=== PATIENT | female | born 1945 | race Caucasian/White ===

== ENCOUNTER 2017-02-23 09:44 | Day surgery (SDC) | payer MEDICARE ==
[2017-02-17 10:05] VITALS: BMI 32.3
[~2017-02-23 09:44] MED LIST: LACTATED RINGERS 1,000 ML IV SCH; LIDOCAINE 1% 20 ML VIAL (10MG/ML) FOR IV START INTRADERMA PRN
[2017-02-23 10:49] VITALS: RESP 16; TEMP 97.8
[2017-02-23] MEDS: CYCLOPENTOLATE 1% OPHTH SOLN 2 ML BTL OP ONE ×3 (10:53→11:10)
[2017-02-23] MEDS: KETOROLAC 0.5% OPHTH DROPS 3 ML BTL OP ONE ×3 (10:55→11:12)
[2017-02-23] MEDS: PHENYLEPHRINE 10% OPHTH DROPS 5 ML BTL OP ONE ×3 (10:57→11:14)
[2017-02-23] MEDS ORDERED: TETRACAINE 0.5% OPHTH (PF) DROPS 4 ML BTL LEFT EYE ONE (11:59)
[2017-02-23] MEDS ORDERED: BALANCED SALT IRRIG SOLN COMB2 15 ML IRRIG.SOLN INTRAOCULA ONE ×2 (11:59→12:11)
[2017-02-23] MEDS ORDERED: HYALURONATE SODIUM INTRAOCULAR 1 EACH SYRINGE (10MG/ML) INTRAOCULA ONE ×2 (11:59→12:11)
[2017-02-23] MEDS: BUPIVACAINE (PF) 0.75% 5 ML, LIDOCAINE 4% (PF) 5 ML, HYALURONIDASE, HUMAN RECOMB 150 UNIT MISCELLANE ONE ×12 (12:00→12:11)
[2017-02-23] MEDS ORDERED: TIMOLOL 0.5% OPHTH SOLN (PF) 0.2 ML DROPERETTE LEFT EYE ONE ×2 (12:00→12:11)
[2017-02-23] MEDS: GENTAMICIN/PREDNISOL AC OPHTH OINT 3.5GM OPHTHALMIC ONE ×2 (12:00→12:11)
[2017-02-23] MEDS ORDERED: PROPOFOL 10 MG/ML 20 ML VIAL IV ONE (12:01)
[2017-02-23] MEDS ORDERED: EPINEPHrine (PF) 0.5 ML in BALANCED SALT IRRIG SOLN COMB2 500 ML IRRIGATION ONE (12:04)
--- NOTE | 2017-02-23 12:22 | P.OP ---
Date of Procedure: 02/23/17 Preoperative Diagnosis: Postoperative Diagnosis: Procedure(s) Performed: PREOPERATIVE DIAGNOSIS: Cataract, left eye. POSTOPERATIVE DIAGNOSIS: Cataract, left eye. OPERATION: Phacoemulsification cataract, left eye. DESCRIPTION OF PROCEDURE: The patient was taken to the preoperative holding area. Intravenous Propofol was given so as to bring about adequate sedation. The following mixture was given for local anesthesia: 5 mL of 2% lidocaine, 5 mL of 0.75% Marcaine, and 1 mL of Wydase. Approximately 4 mL was injected in the retrobulbar space of the surgical eye. Additional 1 mL was then directed to the temporal area of the surgical eye. This was performed to allow adequate neurological block of the facial muscles. The patient was revived and then taken into the operative room. The patient was prepped and draped in the usual sterile manner for the operative eye. A lid speculum was put into position. The conjunctiva was resected back from the limbus in the 12 o'clock position. Bleeding was controlled with electrocautery. A #69 blade was then used and a half-thickness scleral incision approximately 1-mm posterior to the limbus was made on bare sclera. This was shelved in the clear cornea using a crescent knife. Next a 15-degree blade was used to make a stab incision at the 3 o' clock position at the corneolimbal interface. Keratome blade was then used and the superior wound was extended into the anterior chamber. Viscoelastic was injected into the anterior chamber and to maintain its form. Next, a cystotome was used and a continuous anterior capsulotomy was made without difficulty. Hydrodissection using a blunt cannula and BSS was performed. Phaco probe was then employed and a groove extending from 12 to 6 o'clock in the lens was created. A Pete wand was used through the stab incision so as to perform a divide and conquer technique. Next an irrigation aspiration probe was utilized and any residual cortex was removed from the eye. Again, viscoelastic was injected into the anterior chamber. An Vahid posterior chamber lens implant was placed in the cartridge and injected into the anterior chamber without difficulty. The Avectraey hook was utilized to spin the lens into position and this was again performed without any difficulty. The irrigation and aspiration probe was again employed and any residual viscoelastic was removed from the eye. Then BSS was injected into the limbal stab incision and the anterior chamber re-inflated. The conjunctiva was reapproximated using electrocautery. One drop of 0.25% Timoptic was placed over the corneal along with TobraDex ophthalmic ointment. Two sterile patches and a Coleman eye shield were taped into position. The patient was transported to the recovery room in stable condition. Implants: Pathology: none sent Condition: stable Disposition: same day Indications for Procedure: Operative Findings: Description of Procedure:
[2017-02-23 12:46] VITALS: BP 147/65; PULSE 67
[2017-02-23] MEDS ORDERED: TIMOLOL 0.5% OPHTH SOLN (PF) 0.2 ML DROPERETTE OP ONE (23:00)
== END 2017-02-23 13:26 | disposition home or self-care (01) ==
LOC: OR 09:44
PROVIDERS: ATTEND Ophthalmology
DX: H26.9 Unspecified cataract (principal); M19.90 Unspecified osteoarthritis, unspecified site; Z79.899 Other long term (current) drug therapy
CPT/HCPCS: 66984; V2632; J2001; J3470; J0171; J2704

== ENCOUNTER 2017-04-20 12:06 | Day surgery (SDC) | payer MEDICARE, OTHER ==
[2017-04-19 10:01] VITALS: BMI 32.3
[2017-04-20] MEDS: CYCLOPENTOLATE 1% OPHTH SOLN 2 ML BTL OP ONE ×3 (12:36→12:54)
[2017-04-20] MEDS: KETOROLAC 0.5% OPHTH DROPS 5 ML BTL OP ONE ×3 (12:39→12:57)
[2017-04-20 12:41] VITALS: RESP 18; TEMP 97.9
[2017-04-20] MEDS: PHENYLEPHRINE 10% OPHTH DROPS 5 ML BTL OP ONE ×3 (12:42→13:00)
[2017-04-20] MEDS ORDERED: LIDOCAINE 1% 20 ML VIAL (10MG/ML) FOR IV START INTRADERMA ONE (13:02)
[2017-04-20] MEDS ORDERED: LACTATED RINGERS 1,000 ML IV ONE (13:06)
[2017-04-20] MEDS ORDERED: PROPOFOL 10 MG/ML 20 ML VIAL IV ONE (13:56)
[2017-04-20] MEDS ORDERED: EPINEPHrine (PF) 0.5 ML in BALANCED SALT IRRIG SOLN COMB2 500 ML IRRIGATION ONE (14:00)
[2017-04-20] MEDS ORDERED: HYALURONATE SODIUM INTRAOCULAR 1 EACH SYRINGE (10MG/ML) INTRAOCULA ONE (14:05)
[2017-04-20] MEDS ORDERED: BALANCED SALT IRRIG SOLN COMB2 15 ML IRRIG.SOLN INTRAOCULA ONE (14:05)
[2017-04-20] MEDS ORDERED: TIMOLOL 0.5% OPHTH SOLN (PF) 0.2 ML DROPERETTE RIGHT EYE ONE (14:06)
--- NOTE | 2017-04-20 14:20 | P.OP ---
Date of Procedure: 04/20/17 Procedure(s) Performed: PREOPERATIVE DIAGNOSIS: Cataract, right eye. POSTOPERATIVE DIAGNOSIS: Cataract, right eye. OPERATION: Phacoemulsification cataract, right eye. DESCRIPTION OF PROCEDURE: The patient was taken to the preoperative holding area. Intravenous Propofol was given so as to bring about adequate sedation. The following mixture was given for local anesthesia: 5 mL of 2% lidocaine, 5 mL of 0.75% Marcaine, and 1 mL of Wydase. Approximately 4 mL was injected in the retrobulbar space of the surgical eye. Additional 1 mL was then directed to the temporal area of the surgical eye. This was performed to allow adequate neurological block of the facial muscles. The patient was revived and then taken into the operative room. The patient was prepped and draped in the usual sterile manner for the operative eye. A lid speculum was put into position. The conjunctiva was resected back from the limbus in the 12 o'clock position. Bleeding was controlled with electrocautery. A #69 blade was then used and a half-thickness scleral incision approximately 1-mm posterior to the limbus was made on bare sclera. This was shelved in the clear cornea using a crescent knife. The steep axis of astigmatism was marked using a pre-inked corneal device. Next a 15-degree blade was used to make a stab incision at the 3 o' clock position at the corneolimbal interface. Keratome blade was then used and the superior wound was extended into the anterior chamber. Viscoelastic was injected into the anterior chamber and to maintain its form. Next, a cystotome was used and a continuous anterior capsulotomy was made without difficulty. Hydrodissection using a blunt cannula and BSS was performed. Phaco probe was then employed and a groove extending from 12 to 6 o'clock in the lens was created. A Pete wand was used through the stab incision so as to perform a divide and conquer technique. Next an irrigation aspiration probe was utilized and any residual cortex was removed from the eye. Again, viscoelastic was injected into the anterior chamber. An Vahid toric posterior chamber lens implant was placed in the cartridge and injected into the anterior chamber without difficulty. The Sinskey hook was utilized to spin the lens into position and this was again performed without any difficulty. The irrigation and aspiration probe was again employed and any residual viscoelastic was removed from the eye. Then BSS was injected into the limbal stab incision and the anterior chamber re-inflated. The conjunctiva was reapproximated using electrocautery. One drop of 0.25% Timoptic was placed over the corneal along with TobraDex ophthalmic ointment. Two sterile patches and a Coleman eye shield were taped into position. The patient was transported to the recovery room in stable condition. Pathology: none sent Condition: stable Disposition: same day
[2017-04-20 14:45] VITALS: BP 152/77; PULSE 66
[2017-04-20] MEDS ORDERED: BUPIVACAINE (PF) 0.75% 5 ML, LIDOCAINE 4% (PF) 5 ML, HYALURONIDASE, HUMAN RECOMB 150 UNIT MISCELLANE ONE ×3 (23:00)
[2017-04-20] MEDS ORDERED: TIMOLOL 0.5% OPHTH SOLN (PF) 0.2 ML DROPERETTE OP ONE (23:00)
[2017-04-20] MEDS ORDERED: GENTAMICIN/PREDNISOL AC OPHTH OINT 3.5GM OPHTHALMIC ONE (23:00)
== END 2017-04-20 15:05 | disposition home or self-care (01) ==
LOC: OR 12:06
PROVIDERS: ATTEND Ophthalmology
DX: H26.9 Unspecified cataract (principal); Z79.899 Other long term (current) drug therapy
CPT/HCPCS: 66984; V2787; C1780; J2001; J3470; J0171; J2704

== ENCOUNTER 2017-10-27 13:07 | Emergency (ER) | payer MEDICARE ==
[2017-10-27] MEDS ORDERED: ASPIRIN 81 MG PO STA (13:32)
[2017-10-27] MEDS ORDERED: RX INFO: IV CONTRAST WAS GIVEN 1 EACH MISC MISCELLANE PRN (13:33)
--- NOTE | 2017-10-27 13:36 | ED ---
Chest Pain HPI - General Chief Complaint: Chest Pain Stated Complaint: Chest pain Time Seen by Provider: 10/27/17 13:32 Source: patient Mode of arrival: wheelchair Limitations: no limitations - History of Present Illness Initial Comments: Patient complains of chest pain. She has been having off-and-on chest pain for about a year. She has been admitted to the hospital for this. She has had an echocardiogram, stress test, CT for pulmonary embolism, all within the last couple months. All of her testing has been negative. She states that nothing makes the chest pain better or worse. There is nothing specific that brings it on. Sometimes it does come on with exertion, but not always. She has no shortness of breath, lightheadedness or dizziness or nausea or vomiting or diaphoresis. She has no pain or swelling the legs or calf pain. She has no palpitations. She has no headache. She states that when she gets the chest pain she does experience sweating, but is currently not having any chest pain or feels diaphoretic. - Related Data Home Medications Medication Instructions Recorded Confirmed Aspirin 325 mg PO Q4H PRN 10/27/17 10/27/17 Allergies Allergy/AdvReac Type Severity Reaction Status Date / Time No Known Allergies Allergy Verified 10/27/17 14:01 Review of Systems ROS Statement: Those systems with pertinent positive or pertinent negative responses have been documented in the HPI. ROS Other: All systems not noted in ROS Statement are negative. EKG Findings - EKG Comments: EKG Findings:: Twelve-lead EKG shows ventricular rate 73 bpm, normal AR interval Fernando complex is, no ST elevation or depression, interpreted by me as normal sinus rhythm. Past Medical History Past Medical History: Eye Disorder Additional Past Medical History / Comment(s): RT CATARACT History of Any Multi-Drug Resistant Organisms: None Reported Past Surgical History: Cholecystectomy, Hernia Repair, Orthopedic Surgery, Tonsillectomy Additional Past Surgical History / Comment(s): LEFT CATARACT,LASER VARICOSE VEIN RT LEG,ORIF LT ANKLE,COLONOSCOPY Past Anesthesia/Blood Transfusion Reactions: No Reported Reaction Past Psychological History: No Psychological Hx Reported Smoking Status: Never smoker Past Alcohol Use History: None Reported Past Drug Use History: None Reported - Past Family History Mother Family Medical History: No Reported History General Exam Limitations: no limitations General appearance: alert, in no apparent distress Head exam: Present: atraumatic, normocephalic, normal inspection Eye exam: Present: normal appearance, PERRL, EOMI. Absent: scleral icterus, conjunctival injection, periorbital swelling ENT exam: Present: normal exam, mucous membranes moist Neck exam: Present: normal inspection. Absent: tenderness, meningismus, lymphadenopathy Respiratory exam: Present: normal lung sounds bilaterally. Absent: respiratory distress, wheezes, rales, rhonchi, stridor Cardiovascular Exam: Present: regular rate, normal rhythm, normal heart sounds. Absent: systolic murmur, diastolic murmur, rubs, gallop, clicks GI/Abdominal exam: Present: soft, normal bowel sounds. Absent: distended, tenderness, guarding, rebound, rigid Extremities exam: Present: normal inspection, full ROM, normal capillary refill. Absent: tenderness, pedal edema, joint swelling, calf tenderness Back exam: Present: normal inspection Neurological exam: Present: alert, oriented X3, CN II-XII intact Psychiatric exam: Present: normal affect, normal mood Skin exam: Present: warm, dry, intact, normal color. Absent: rash Course Vital Signs 10/27/17 13:15 Temperature 97.9 F Pulse Rate 86 Respiratory 20 Rate Blood Pressure 158/86 O2 Sat by Pulse 99 Oximetry Chest Pain MDM - Core Measures AMI Core Measures Followed: Yes - MDM Patient's entire workup is negative. All her imaging is negative. She is symptom free on reevaluation. She has had a very extensive workup within the past couple months. There is no indication for admission at this time. She has no evidence of an acute emergency condition currently. She is stable for discharge and outpatient follow-up. Disposition Clinical Impression: Chest pain Disposition: HOME SELF-CARE Condition: Good Instructions: Chest Pain (ED) Is patient prescribed a controlled substance at d/c from ED?: No Referrals: Kishore Carr DO [Primary Care Provider] - 1-2 days Mimi Ward MD [STAFF PHYSICIAN] - 1-2 days
[2017-10-27 13:46] LABS: Basophils % (A) 0 %; Eosinophils # (A) 0.3 k/uL (0-0.7); Eosinophils % (A) 3 %; HCT 40.7 % (34.0-46.0); HGB 13.2 gm/dL (11.4-16.0); Lymphocytes # (A) 1.9 k/uL (1.0-4.8); Lymphocytes % (A) 17 %; MCH 27.2 pg (25.0-35.0); MCHC 32.5 g/dL (31.0-37.0); MCV 83.6 fL (80.0-100.0); Mean Platelet Volume 7.6; Monocytes # (A) 0.6 k/uL (0-1.0); Monocytes % (A) 5 %; Neutrophils # (A) 7.8 k/uL (1.3-7.7); Neutrophils % (A) 73 %; Platelet Count 240 k/uL (150-450); RBC 4.88 m/uL (3.80-5.40); RDW 13.7 % (11.5-15.5); WBC 10.7 k/uL (3.8-10.6)
[2017-10-27 13:53] LABS: Albumin 4.1 g/dL (3.5-5.0); Calcium 9.6 mg/dL (8.4-10.2); Magnesium 1.9 mg/dL (1.6-2.3); Potassium 4.3 mmol/L (3.5-5.1); Total Bilirubin 0.5 mg/dL (0.2-1.3); Total Protein 6.9 g/dL (6.3-8.2)
--- NOTE | 2017-10-27 13:57 | XR ---
EXAMINATION TYPE: XR chest 2V DATE OF EXAM: 10/27/2017 COMPARISON: 01/14/2012 TECHNIQUE: PA and lateral views submitted. HISTORY: Chest pain FINDINGS: The lungs are clear and there is no pneumothorax, pleural effusion, or focal pneumonia. Calcified g ranuloma right lung. Hypertrophic and degenerative change of the spine. No overt failure. IMPRESSION: 1. No acute process.
[2017-10-27 13:58] LABS: Partial Thromboplastin Time 23.2 sec (22.0-30.0)
[2017-10-27 15:37] LABS: Appearance,Urine Clear (Clear); Bacteria,Urine Many /hpf; Bilirubin,Urine Negative (Negative); Blood,Urine Negative (Negative); Color,Urine Light Yellow; Glucose,Urine (UA) Negative (Negative); Ketones,Urine Negative (Negative); Leukocyte Esterase,Urine Moderate (Negative); Mucus,Urine Rare /hpf; Nitrite,Urine Negative (Negative); Protein,Urine Negative (Negative); RBC,Urine 1 /hpf (0-5); Specific Gravity,Urine 1.007 (1.001-1.035); Squamous Epithelial Cell,Urine 1 /hpf (0-4); Urobilinogen,Urine <2.0 mg/dL (<2.0); WBC,Urine 14 /hpf (0-5)
--- NOTE | 2017-10-27 15:37 | CT ---
EXAMINATION TYPE: CT abdomen pelvis w con DATE OF EXAM: 10/27/2017 HISTORY: Chest pain, SOB and RUQ pain. CT DLP: 1704mGycm Automated Exposure Control for Dose Reduction was Utilized. CONTRAST: CT scan of the abdomen and pelvis is performed with IV Contrast, patient injected with 100ml mL of Is ovue M300. COMPARISON: None. FINDINGS: LUNG BASES: There is a calcified granuloma at the right lung base. Prominent subpleural fat is seen i n the left with no pleural effusion. There is left hemidiaphragm elevation noted. LIVER/GB: Liver is grossly unremarkable and homogeneous in enhancement. Gallbladder surgically absent . PANCREAS: There is diffuse mild to moderate pancreatic parenchymal atrophy. No ductal dilatation. SPLEEN: Scattered calcified granulomas are benign in seen within the splenic parenchyma. ADRENALS: No nodularity or thickening. KIDNEYS: Tiny 3 mm anterior right upper pole and posterior right upper pole renal lesions are seen th at are too small to accurately characterize. No hydronephrosis or perinephric fluid collection. BOWEL: Numerous colonic diverticula are present without pericolonic fat stranding. UTERUS/ADNEXA: No gross abnormality seen. Pelvic floor relaxation is noted with possible cystocele. LYMPH NODES: No greater than 1cm abdominal or pelvic lymph nodes are appreciated. OSSEOUS STRUCTURES: Moderate multilevel degenerative changes of visualized spine are seen. IMPRESSION: 1. No acute finding is seen to account for patient's clinical symptoms. 2. Colonic diverticulosis without evidence of diverticulitis. 3. Pelvic floor relaxation with possible cystocele.
[2017-10-27 16:06] VITALS: BP 134/80; PULSE 68; RESP 18; TEMP 97.3
== END 2017-10-27 15:55 | disposition home or self-care (01) ==
LOC: EC 13:07
DX: R07.9 Chest pain, unspecified (principal)
CPT/HCPCS: 36415; 93005; 83880; 80053; 83690; 83735; 84484; 85025; 85610; 85730; 81001; 71046; 74177; 99285; Q9967

== ENCOUNTER → 2018-05-17 | Outpatient (CLI) | payer MEDICARE ==
[2018-05-17 17:39] LABS: LDL Cholesterol,Calculated 80.2 mg/dL (0.0-131.0); VLDL Calculation 27.8 mg/dL (5.00-40.00)
== END ==
LOC: LABWHC1 09:09
PROVIDERS: ATTEND Internal Medicine Cardiovascular Disease
DX: I25.111 Atherosclerotic heart disease of native coronary artery with angina pectoris with documented spasm (principal)
CPT/HCPCS: 36415; 80061; 84460

== ENCOUNTER → 2018-11-10 | Outpatient (CLI) | payer MEDICARE ==
[2018-11-10 18:45] LABS: LDL Cholesterol,Calculated 87.4 mg/dL (0.0-131.0); VLDL Calculation 28.6 mg/dL (5.00-40.00)
== END | disposition home or self-care (01) ==
LOC: LABWHC1 09:05
PROVIDERS: ATTEND Internal Medicine Cardiovascular Disease
DX: E78.6 Lipoprotein deficiency (principal); I20.9 Angina pectoris, unspecified; I25.111 Atherosclerotic heart disease of native coronary artery with angina pectoris with documented spasm
CPT/HCPCS: 36415; 80061

== ENCOUNTER → 2019-08-25 | Outpatient (CLI) | payer MEDICARE ==
--- NOTE | 2019-08-25 15:49 | CT ---
EXAMINATION TYPE: CT angio chest DATE OF EXAM: 08/25/2019 COMPARISON: None HISTORY: Shortness of breath CONTRAST: CT chest with contrast and 3D reconstruction with MIP imaging is performed with IV Contrast, patient injected with 100 mL of Isovue 300. Contrast-enhanced CT of the chest was performed through the course of the pulmonary arteries with dulce g and mediastinal window settings submitted. 3D reconstruction with MIP imaging was also performed. PULMONARY ARTERIES: The pulmonary arteries and their major tributaries are patent. I do not see zachary dence for sizable filling defect to suggest pulmonary embolic process. LUNGS: The lungs are clear and free of infiltrate. No evidence for atelectasis. No pulmonary nodule or mass is detected. No pleural effusion. Scattered calcified granulomas identified. MEDIASTINUM: Thoracic aorta is of normal caliber,however, evaluation is limited given timing of the contrast bolus. If there is concern for thoracic aortic pathology consider WANDA. Correlate clinicall y . The heart is not enlarged. No evidence for mediastinal mass. No mediastinal lymph nodes greater than 1cm. HILAR STRUCTURES: No evidence for mass. No hilar lymph nodes greater than 1 cm. UPPER ABDOMEN: No significant abnormality is seen. IMPRESSION: 1. No evidence for Pulmonary embolism at this time.
== END | disposition home or self-care (01) ==
LOC: RADCTMAIN 14:10
PROVIDERS: ATTEND Family Medicine
DX: R06.02 Shortness of breath (principal)
CPT/HCPCS: 82565; 84520; 71275; 36415; Q9967

== ENCOUNTER → 2021-05-24 | Outpatient (CLI) | payer MEDICARE ==
[2021-05-24 12:35] LABS: Basophils # (A) 0.1 k/uL (0-0.2); Basophils % (A) 1 %; Eosinophils # (A) 0.7 k/uL (0-0.7); Eosinophils % (A) 5 %; HCT 39.9 % (34.0-46.0); Lymphocytes # (A) 1.2 k/uL (1.0-4.8); Lymphocytes % (A) 10 %; MCH 29.2 pg (25.0-35.0); MCHC 32.7 g/dL (31.0-37.0); MCV 89.5 fL (80.0-100.0); Mean Platelet Volume 8.3; Monocytes # (A) 0.8 k/uL (0-1.0); Monocytes % (A) 6 %; Neutrophils # (A) 9.5 k/uL (1.3-7.7); Neutrophils % (A) 77 %; Platelet Count 252 k/uL (150-450); RBC 4.45 m/uL (3.80-5.40); RDW 14.1 % (11.5-15.5); WBC 12.3 k/uL (3.8-10.6)
[2021-05-24 12:47] LABS: Partial Thromboplastin Time 23.4 sec (22.0-30.0); Prothrombin Time 10.4 sec (9.0-12.0)
[2021-05-24 12:52] LABS: Calcium 9.4 mg/dL (8.4-10.2)
[2021-05-24 13:40] LABS: Appearance,Urine Cloudy (Clear); Bilirubin,Urine Negative (Negative); Blood,Urine Negative (Negative); Color,Urine Yellow; Glucose,Urine (UA) Negative (Negative); Hyaline Casts,Urine 4 /lpf (0-2); Ketones,Urine Negative (Negative); Leukocyte Esterase,Urine Moderate (Negative); Mucus,Urine Many /hpf; Nitrite,Urine Negative (Negative); Protein,Urine Trace (Negative); RBC,Urine 1 /hpf (0-5); Specific Gravity,Urine 1.032 (1.001-1.035); Squamous Epithelial Cell,Urine 5 /hpf (0-4); WBC,Urine 6 /hpf (0-5)
--- NOTE | 2021-05-24 19:21 | XR ---
EXAMINATION TYPE: XR chest 2V DATE OF EXAM: 05/24/2021 COMPARISON: 10/27/2017 HISTORY: Preop TECHNIQUE: FINDINGS: There is no heart failure nor confluent pneumonic infiltrate. Costophrenic angles are clear . There are no hilar masses. Bony thorax is intact. IMPRESSION: No active cardiopulmonary disease. Normal heart. No change.
== END | disposition home or self-care (01) ==
LOC: LABPAT 11:00
PROVIDERS: ATTEND Orthopaedic Surgery Orthopaedic Surgery of the Spine
DX: Z01.812 Encounter for preprocedural laboratory examination (principal)
CPT/HCPCS: 36415; 71046; 80048; 81001; 85025; 85610; 85730; 87070

== ENCOUNTER 2021-06-04 06:42 | Inpatient (IN) | payer MEDICARE ==
[2021-05-28 16:15] VITALS: BMI 31.3
[2021-06-04] MEDS ORDERED: ONDANSETRON 4 MG/2 ML VIAL IVP ONE (06:55)
[2021-06-04] MEDS ORDERED: MIDAZOLAM 2 MG/2 ML VIAL IV PRN (06:55)
[2021-06-04] MEDS ORDERED: DEXAMETHASONE SOD PHOSPHATE 4 MG/ML 1 ML VIAL IV ONE (06:55)
[2021-06-04] MEDS ORDERED: DEXAMETHASONE SOD PHOSPHATE 10 MG/ML 1 ML VIAL ONE (07:53)
[2021-06-04] MEDS ORDERED: NEOSTIGMINE 1 MG/ML 10 ML VIAL ONE (07:53)
[2021-06-04] MEDS ORDERED: PHENYLEPHRINE-0.9% NACL SYG 1,000 MCG/10 ML SYRINGE ONE (07:53)
[2021-06-04] MEDS ORDERED: MIDAZOLAM 2 MG/2 ML VIAL ONE (07:53)
[2021-06-04] MEDS ORDERED: ONDANSETRON 4 MG/2 ML VIAL ONE (07:53)
[2021-06-04] MEDS ORDERED: ePHEDrine 50 MG/ML 1 ML AMP ONE (07:53)
[2021-06-04] MEDS ORDERED: GLYCOPYRROLATE 0.2 MG/ML 2 ML VIAL ONE (07:53)
[2021-06-04] MEDS ORDERED: ceFAZolin 1,000 MG VIAL ONE (07:53)
[2021-06-04] MEDS ORDERED: SUCCINYLCHOLINE CHLORIDE 100 MG/5 ML SYR IV ONE (07:53)
[2021-06-04] MEDS ORDERED: LIDOCAINE 1% INJ 10MG/ML (20 ML MDV) ONE (07:53)
[2021-06-04] MEDS ORDERED: PROPOFOL 10 MG/ML 20 ML VIAL IV ONE (07:53)
[2021-06-04] MEDS ORDERED: SODIUM CHLORIDE 0.9% 100 ML BAG ONE (07:53)
[2021-06-04] MEDS ORDERED: .fentaNYL (PF) 50 MCG/ML AMP ONE (07:53)
[2021-06-04] MEDS ORDERED: ROCURONIUM 10 MG/ML (5 ML VIAL) IV ONE (07:53)
[2021-06-04] MEDS ORDERED: LACTATED RINGERS 1,000 ML IV ONE ×3 (08:00→14:14)
[2021-06-04] MEDS ORDERED: LIDOCAINE 2%-EPI 1:100,000 20 ML VIAL SQ ONE (09:00)
[2021-06-04] MEDS ORDERED: THROMBIN (BOVINE) 5,000 UNIT VIAL TOPICAL ONE (09:01)
[2021-06-04] MEDS ORDERED: GELATIN SPONGE,ABSORB (LARGE) 1 EACH SPONGE MISCELLANE ONE (09:01)
[2021-06-04] MEDS ORDERED: ceFAZolin 1,000 MG in SODIUM CHLORIDE 0.9% 1,000 ML IRRIGATION ONE (10:35)
[2021-06-04] MEDS ORDERED: SENNOSIDES-DOCUSATE SODIUM 1 EACH TAB PO PRN (13:20)
[2021-06-04] MEDS ORDERED: HYDROmorphone 0.5 MG/0.5 ML SYRINGE IVP PRN (13:20)
[2021-06-04] MEDS ORDERED: MAGNESIUM HYDROXIDE 2,400 MG/10 ML CUP PO PRN (13:20)
[2021-06-04] MEDS ORDERED: ONDANSETRON 4 MG/2 ML VIAL IVP PRN (13:20)
[2021-06-04] MEDS ORDERED: BENZOCAINE/MENTHOL LOZENG 1 EACH LOZENGE MUCOUS MEM PRN (13:20)
[2021-06-04] MEDS ORDERED: traMADol 50 MG TAB PO PRN (13:23)
[2021-06-04] MEDS: HYDROmorphone 0.5 MG/0.5 ML SYRINGE IVP PRN ×3 (13:30→14:00)
--- NOTE | 2021-06-04 13:30 | P.OP ---
Date of Procedure: 06/04/21 Preoperative Diagnosis: Spondylolisthesis L3 4, severe disc degeneration L4 5 L5-S1, disc herniation L34 and L5-S1, foraminal stenosis L3 4 L4 5 L5-S1, low back pain, lower extremity radiculopathy Postoperative Diagnosis: Same Anesthesia: GETA Pathology: none sent Condition: stable Disposition: PACU Description of Procedure: DESCRIPTION OF PROCEDURE(S): BRIEF OPERATIVE NOTE Preoperative Diagnosis: Spondylolisthesis L3 4, severe disc degeneration L4 5 L5-S1, disc herniation L34 and L5-S1, foraminal stenosis L3 4 L4 5 L5-S1, low back pain, lower extremity radiculopathy Postoperative Diagnosis: Same Procedure: Laminectomy and decompression L3 4 L4 5 L5-S1 Computer CT navigation aided Minimally invasive Posterior lateral decompression and facet fusion Minimally invasive Transforaminal lumbar interbody fusion for a 360 fusion Discectomy for decompression L3 4 and L5-S1 Placement of interbody graft L3 4 and L5-S1 Use of computer navigation for fusion L3 4 L4 5 L5-S1 Local autogenous bone grafting Aspiration of bone marrow from the vertebral body pedicle at L3 4 on the right Use of bone graft extenders Surgeon: Dr. Curiel Surgical Services Manager: Pavithra garcia Asst. who is present throughout the entire the case persistence during positioning, dissection, exposure, visualization, and all crucial elements of the case as well as closure. Anesthesia: General anesthesia Estimated blood loss: Approximately 350 mL, with approximately 130 mL given back via Cell Saver Complications: None apparent Components implanted: K2M minimally invasive [place] pedicle screw system withscrews measuring 6.5 mm in diameter to rods one [place] interbody cage with 10 mL of osteo amp bio4 bone graft substitute and 30 mL of the BX bone fibers to supplement the local autogenous bone graft and bone marrow aspirate Disposition: To recovery room in good stable condition. OPERATIVE INDICATIONS The patient has had severe issues at their lower extremity in her lower back over the past several years with significant worsening over the past several months. Over the past few months the patient had pain at their back and their lower extremities. The patient is having severe radicular symptoms at their lower extremity with weakness. Her left leg was giving her significant radicular symptoms and pain with some weakness. He is followed over and L4 description as well as an S1 distribution. She is found have large disc herniation L3 4 and L5-S1 with evidence of stenosis L4 5. She had a spondylolisthesis of L3 4 with severe near-complete disc height loss at L4 5 and L5-S1. The patient is having significant pain in their back. They are unable to obtain any comfort. We did aggressive conservative treatment with medications therapy and interventional pain management however thery were not having any relief. The patient also showed evidence of a listhesis with some dynamic instability. The patient has been through conservative treatment. We discussed various treatment options including surgery, and the patient wishes to proceed with surgery We discussed the risk, patient's alternatives and benefits of surgery including but not limited to, risk of bleeding risk of infection, risk of need for further surgery, risk of decreased, loss of motion, muscle function, malunion nonunion, hardware failure, nerve damage, paralysis, heart attack, blindness and . They understood issues with the current pandemic and the possibility of exposure. OPERATIVE SUMMARY After discussing all the risks, patient alternatives and benefits at length, the patient elected to proceed with surgical intervention, signed informed consent, and presented for their procedure. The patient was seen and examined in the preoperative holding area and the surgical site was marked. The patient was given antibiotics and brought to the operating room. The patient was sedated and intubated by anesthesia in standard fashion. The patient was positioned on to the operating room table in a prone position on the appropriate frame which was well-padded and well molded. We were careful to pad any bony prominences and pressure points. We were careful to maintain the patient's cervical spine and good neutral alignment and position throughout. The patient was prepped and draped in a normal standard fashion. An appropriate timeout and keystone protocol performed. We were able to proceed with the surgery. The local wound area was infiltrated with local anesthetic. Over the right iliac crest I was able to make small stab incisions and establish a guidepin screw fixation to the iliac crest 2. I was able place the computer referencing device over the guidepins to establish an appropriate reference point for the Ziem CT navigation. We then were able to place patient in an appropriate drape and do a navigation spin for visualization and 3-D reconstruction of the lumbar spine. I was able utilize C-arm guidance and navigation to establish appropriate position over the pedicles bilaterally at th e appropriate levels at L3 L4 L5 and S1 . With the appropriate levels confirmed was able to make small incisions over the appropriate pedicle sites bilaterally. Utilizing the computer navigation device I was able to establish bony landmarks at the right iliac crest for a bony reference point for the navigation device. I was able to establish a Jamsh[place] needle over the lateral aspect of the pedicle and advanced the trocar into the pedicle being careful not to breech superiorly inferiorly medially or laterally using computer navigation device. Position was confirmed regularly with AP and lateral images on C-arm and with the computer navigation device at the appropriate levels bilaterally. I was able to establish the trocar into the pedicle appropriately into the posterior aspect of the vertebral body bilaterally at the appropriate levels at L3 L4 L5 and S1. This was done at each of the pedicle positions and each of the vertebrae. At the superior vertebrae of L3 on the right I was able to take approximately 25 mL of bone aspiration for use later in the case to supplement the allograft and autograft bone. I was able place the guidewire into the trocar and into the vertebral body appropriately under C-arm guidance. Dissection was taken down over the wire to the appropriate starting position for the screw placed. The appropriate length screw was chosen, threaded over the g uidewire and screwed appropriately into the pedicle and vertebral body under C- arm guidance in excellent alignment and position with good bony purchase. This is done at each of the screw sites at the appropriate levels.. While using the navigation system with C-arm guidance I was able to use live imaging to show a complete bridging osteophyte at L4 5 showing good fusion across that site. There also appeared to be evidence of autofusion at the facet joints at L4 5. With this I decided not to do interbody work at L4 5 which is decompression at L4 5. I did proceed with decompression and interbody work at both L3 4 and L5-S1 With the screws intact I extended the incision to connect the screw hole sites on the most symptomatic side on the left. I dissected down to establish access over the pars and lamina to the base of the spinous process. I was able to expose the facet joint. The capsule the facet was taken down and showed some facet arthrosis at the joint. I was able to use a combination of curettes and [place] rongeurs and a high-speed drill to take down the facet joint and do a facetectomy. I was able get excellent foraminal decompression and central decompression with undermining across midline to perform a laminectomy centrally and contralaterally. As able get good central decompression. The ligamentum flavum was taken down to further decompress centrally and at bilateral neural foramen. I was able to expose the disc space and visualize the traversing nerve root. Note was made of some disc protrusion and disc herniation that was abutting the traversing nerve root at the level causing further compression of the nerve root. There is evidence of extruded disc at both L3 4 and at L5-S1. I was able to establish a annulotomy at the appropriate level protecting soft tissue and neural structures. Note was made of some disc desiccation at the disc. I was also get any extruded disc material away and perform excellent discectomy which aided in the decompression both at L3 4 and L5-S1 I performed a complete discectomy with accommodation of curettes and rasps and scrapers. I was able get good endplate preparation at the disc space. I sized for the ap propriate size interbody spacer protecting the soft tissue and neural structures. The wound was copiously irrigated and suctioned dry. There is no evidence of any dural tear or leak. I was able to pack the disc space with local autogenous bone graft as well as a small amount of bone graft which was also placed into the interbody cage itself. Protecting the soft tissue structures and neural structures I was able place the interbody cage in good alignment and good position with good fit and fill at the interbody space. Position was confirmed with C-arm guidance. Good hemostasis maintained. There is no evidence of any dural tear or leak. The wound was irrigated and suctioned dry. With the hardware intact, intraoperative C-arm imaging was again taken which showed good alignment and position of the hardware at the appropriate levels at L3 4 L4 5 and L5-S1. We were then able to measure, contour and place the rods and appropriate hardware bilaterally. I was able to place capcrews, tighten them down, and torque them with the torque screwdriver appropriately. With this intact I was able to place the local autogenous bone graft with additional bone graft enhancer as necessary into the posterior lateral gutters over the decorticated transverse processes and facet joints on the contralateral side. The remainder of the bone graft was placed over the facet joint on the contralat eral side after taking down the facet joint capsule. With the bone graft intact, a stable construct, and good decompression at the appropriate levels, we were able to proceed with closure. Good hemostasis was maintained. There is no evidence of dural tear or leak. The fascia was closed for a watertight closure. he subcuticular tissue was closed with absorbable suture. The wound was cleaned and dried and dressed with the appropriate dressing. The drapes were broken down. The patient was gently rolled back onto their hospital bed being careful to maintain their cervical spine and good neutral alignment and position. They were woken up by anesthesia, extubated, and brought to the recovery room in good stable condition. The patient will be admitted to the hospital for appropriate postoperative care, medical management and monitoring. We will continue to follow them closely about the postoperative course.
[2021-06-04] MEDS: LACTATED RINGERS 1,000 ML IV SCH (15:04)
--- NOTE | 2021-06-04 16:08 | XR ---
Fluoroscopy INDICATION: Pain FINDINGS: Fluoroscopy time: 31 seconds. Images obtained: 1. IMPRESSIONS: 1. Documentation of fluoroscopy.
[2021-06-04] MEDS: carvediloL 12.5 MG TAB PO SCH (17:00)
[2021-06-04] MEDS: SODIUM CHLORIDE 0.9% 1,000 ML IV SCH (17:00)
[2021-06-04] MEDS: HYDROcodone/APAP 5-325MG 1 EACH TAB PO PRN (21:16)
[2021-06-05] MEDS: HYDROmorphone 1 MG/ML 1 ML SYRINGE IVP PRN ×5 (00:27→23:30)
[2021-06-05] MEDS: SODIUM CHLORIDE 0.9% 1,000 ML IV SCH ×2 (03:45→14:56)
[2021-06-05 05:22] LABS: Basophils % (A) 0 %; Eosinophils % (A) 0 %; HCT 35.2 % (34.0-46.0); HGB 11.6 gm/dL (11.4-16.0); Lymphocytes # (A) 0.6 k/uL (1.0-4.8); Lymphocytes % (A) 3 %; MCH 29.4 pg (25.0-35.0); MCHC 33.1 g/dL (31.0-37.0); MCV 88.9 fL (80.0-100.0); Monocytes # (A) 0.9 k/uL (0-1.0); Monocytes % (A) 5 %; Neutrophils # (A) 15.9 k/uL (1.3-7.7); Neutrophils % (A) 91 %; Platelet Count 164 k/uL (150-450); RBC 3.96 m/uL (3.80-5.40); RDW 14.5 % (11.5-15.5); WBC 17.4 k/uL (3.8-10.6)
[2021-06-05 09:51] LABS: African American GFR (CKD) 61.2 (60.0-200.0); Anion Gap 12.7 mmol/L (10.00-18.00); BUN/Creat Ratio 17.09 Ratio (12.00-20.00); Blood Urea Nitrogen 17.6 mg/dL (9.0-27.0); Calcium 8.4 mg/dL (8.7-10.3); Carbon Dioxide 19.6 mmol/L (20.0-27.5); Non-African American GFR(CKD) 52.8 (60.0-200.0); Potassium 4.9 mmol/L (3.5-5.5)
[2021-06-05] MEDS: CYCLOBENZAPRINE 10 MG TAB PO PRN (10:02)
[2021-06-05] MEDS: carvediloL 12.5 MG TAB PO SCH ×2 (10:02→17:26)
[2021-06-05] MEDS: ATORVASTATIN 40 MG TAB PO SCH (10:03)
[2021-06-05] MEDS: ASPIRIN 81 MG PO SCH (10:03)
[2021-06-05] MEDS: SENNOSIDES-DOCUSATE SODIUM 1 EACH TAB PO SCH (10:03)
[2021-06-05] MEDS: ISOSORBIDE MONONITRATE ER 60 MG TAB.ER.24H PO SCH (10:03)
[2021-06-05] MEDS: LACTATED RINGERS 1,000 ML IV SCH (10:05)
--- NOTE | 2021-06-05 10:11 | P.PN ---
Progress Note - Text Progress Note Date: 06/05/21 Postoperative day #1 Patient is seen and examined today at bedside. The patient has some pain around the surgical site as expected. Pain is being controlled with medication. She feels feeling well. She is tolerating her diet breakfast. She says her legs are doing well while lying in bed. Physical Exam Afebrile with stable vital signs Abdomen is soft nontender. Chest has good excursion deep and space expiration The incision site is clean dry and intact. No erythema there is no purulence. Extremities have not had neurologic change from prior to surgery. She has sustained dorsal flexion plantar flexion and EHL intact. Calves and thighs were soft nontender without evidence of DVT. Assessment/Plan Postoperative day #1 status post minimally invasive decompression fusion L3 4 L4 5 L5-S1 for her disc herniation with stenosis and listhesis with lower extremity radicular pain weakness Patient is progressing as expected from the surgery. So far she is doing very nicely. We'll see how she does when she stresses try to get out of bed. She is tolerating her diet well and her pain. We will controlled. She is able to feel good in her legs thus far and we will see how she does as she starts to mobilize further. We will continue to increase the patient's mobilization with therapy. We will continue pain control with oral or IV medications. We'll continue to follow patient closely.
[2021-06-05] MEDS: HYDROcodone/APAP 5-325MG 1 EACH TAB PO PRN (10:20)
--- NOTE | 2021-06-05 15:44 | P.CONS ---
History of Present Illness - Reason for Consult Consult date: 06/05/21 Medical management of hypertension Requesting physician: Seth Curiel - Chief Complaint Disc herniation with stenosis, lower extremity radiculopathy - History of Present Illness This is a 76-year-old female , CAD with history of cardiac stents, cataracts and multiple other medical issues presented to the hospital for elective surgery regarding disc herniation with stenosis and lower extremity radiculopathy, status post minimally invasive decompression fusion L 3 4 L4 space 5 5-S1. Tolerated procedure well. Has been out of bed yet. Afebrile, WBC 17.4. Hemoglobin 11.6, platelets 164, renal function stable. [place] virus not detected. Passing flatus. Reports pain better controlled. Denies nausea vomiting. Denies chest pain, palpitations or shortness of breath. Review of Systems ROS Statement: Those systems with pertinent positive or pertinent negative responses have been documented in the HPI. ROS Other: All systems not noted in ROS Statement are negative. Past Medical History Past Medical History: Hyperlipidemia, Hypertension, Musculoskeletal Disorder, Osteoarthritis (OA) Additional Past Medical History / Comment(s): RT CATARACT History of Any Multi-Drug Resistant Organisms: None Reported Past Surgical History: Cholecystectomy, Heart Catheterization With Stent, Hernia Repair, Orthopedic Surgery, Tonsillectomy Additional Past Surgical History / Comment(s): cataracts removed,LASER VARICOSE VEIN RT LEG, ORIF LT ANKLE,COLONOSCOPY, arthroscopy left knee Past Anesthesia/Blood Transfusion Reactions: No Reported Reaction Date of Last Stent Placement:: 2017 Smoking Status: Never smoker - Past Family History Mother Family Medical History: No Reported History Medications and Allergies Home Medications Medication Instructions Recorded Confirmed Type Aspirin 81 mg PO DAILY 05/28/21 05/28/21 History Atorvastatin [Lipitor] 40 mg PO DAILY 05/28/21 06/04/21 History Carvedilol [Coreg] 25 mg PO BID 05/28/21 06/04/21 History HYDROcodone/APAP 5-325MG [[place] 1 tab PO Q6HR PRN 05/28/21 06/04/21 History 5-325] Isosorbide Mononitrate ER [Imdur] 60 mg PO DAILY 05/28/21 06/04/21 History traMADol HCl [Ultram] 50 mg PO Q12H PRN 05/28/21 06/04/21 History Cephalexin [Keflex] 250 mg PO Q12HR 06/04/21 06/04/21 History HYDROcodone/APAP 5-325MG [[place] 1 tab PO Q4HR PRN 3 Days #42 tab 06/05/21 Rx 5-325] Allergies Allergy/AdvReac Type Severity Reaction Status Date / Time No Known Allergies Allergy Verified 06/04/21 07:27 Physical Exam Vitals: Vital Signs Temp Pulse Pulse Resp BP Pulse Ox 06/05/21 13:42 98.4 F 84 19 128/73 94 L 06/05/21 04:24 98.3 F 71 16 133/75 95 06/04/21 20:39 97.5 F L 57 L 16 158/80 99 Intake and Output 06/05/21 06/05/21 06/05/21 06:59 14:59 22:59 Intake Total 1350 Balance 1350 Intake: Intake, IV Titration 950 Amount Sodium Chloride 0.9% 1, 900 000 ml @ 75 mls/hr IV . [id number] [facility] Rx#:[id number] ceFAZolin 2 gm In Sodium 50 Chloride 0.9% 50 ml @ 100 mls/hr IVPB Q8HR [facility] Rx# :[id number] Oral 400 Other: Voiding Method Indwelling Catheter PHYSICAL EXAM: VITAL SIGNS: [As above] GENERAL:Sitting up in bed, no acute distress. HEENT: Conjunctivae normal. eyes normal. Oral mucosa moist. NECK: No JVD. No LNs. CARDIOVASCULAR: S1, S2 regular. No murmur. RESPIRATION: Breath sounds diminished in the bases. No rhonchi or crackles. No bronchial breathing. ABDOMEN: Soft, nontender . No guarding. no masses palpable. No ascites, No hepatosplenomegaly.Bowel sounds heard. LEGS: No edema. no swelling, no clubbing, no cyanosis, no calf pain. PSYCHIATRY: Alert and oriented X3, mood and affect normal. NERVOUS SYSTEM: Cranial N 2-12 grossly normal. Moves all 4 limbs. Diffuse weakness No focal deficits. Strength and sensation grossly intact. Skin: Warm and dry, no rash Results CBC & Chem 7: 06/05/21 04:20 06/05/21 04:20 Labs: Abnormal Lab Results - Last 24 Hours (Table) 06/05/21 06/05/21 Range/Units 04:20 04:20 WBC 17.4 H (3.8-10.6) k/uL Neutrophils # 15.9 H (1.3-7.7) k/uL Lymphocytes # 0.6 L (1.0-4.8) k/uL Carbon Dioxide 19.6 L (20.0-27.5) mmol/L Est GFR (CKD-EPI)NonAf 52.8 L (60.0-200.0) Glucose 162 H (70-110) mg/dL Calcium 8.4 L (8.7-10.3) mg/dL Assessment and Plan Assessment: Postoperative day #1 status post minimally invasive decompression fusion L3 4 L4 5 L5-S1 for her disc herniation with stenosis and listhesis with lower extremity radicular pain weakness Leukocytosis, suspect reactive Hypertension Hyperlipidemia Osteoarthritis Plan: Continue on current medication regime ,monitoring and symptomatic treatment. PT . Pain management .Aggressive pulmonary toileting with incentive spirometer reinforced. Mild leukocytosis, UA with cx ordered. Repeat labs ordered for a.m. close monitoring of WBC. Protonix for GI prophylaxis. DVT prophylaxis as per orthopedic spine/primary. Thank you Dr. Curiel for the consult. The impression and plan of care has been dictated as directed. .: I performed a history and examination of this patient, discussed the same with the dictator. I agree with the dictator's note ,documented as a scribe. Any additional findings or plans will be noted.
[2021-06-05] MEDS: PANTOPRAZOLE 40 MG/10 ML VIAL IVP SCH (17:25)
[2021-06-06] MEDS: HYDROmorphone 1 MG/ML 1 ML SYRINGE IVP PRN ×4 (04:00→23:48)
[2021-06-06] MEDS: LACTATED RINGERS 1,000 ML IV SCH (05:10)
[2021-06-06] MEDS: SODIUM CHLORIDE 0.9% 1,000 ML IV SCH ×2 (05:47→20:23)
[2021-06-06 06:48] LABS: Basophils % (A) 0 %; Eosinophils % (A) 0 %; HCT 29.4 % (34.0-46.0); Lymphocytes # (A) 0.7 k/uL (1.0-4.8); Lymphocytes % (A) 5 %; MCH 29.5 pg (25.0-35.0); MCHC 33.1 g/dL (31.0-37.0); MCV 89.2 fL (80.0-100.0); Mean Platelet Volume 8.7; Monocytes % (A) 7 %; Neutrophils # (A) 12.7 k/uL (1.3-7.7); Neutrophils % (A) 88 %; Platelet Count 148 k/uL (150-450); RBC 3.29 m/uL (3.80-5.40); RDW 14.3 % (11.5-15.5); WBC 14.6 k/uL (3.8-10.6)
[2021-06-06 06:51] LABS: Appearance,Urine Cloudy (Clear); Bilirubin,Urine Negative (Negative); Blood,Urine Trace (Negative); Color,Urine Yellow; Glucose,Urine (UA) Negative (Negative); Hyaline Casts,Urine 1 /lpf (0-2); Ketones,Urine Negative (Negative); Leukocyte Esterase,Urine Small (Negative); Mucus,Urine Few /hpf; Nitrite,Urine Negative (Negative); Protein,Urine Trace (Negative); RBC,Urine 9 /hpf (0-5); Specific Gravity,Urine 1.029 (1.001-1.035); Squamous Epithelial Cell,Urine 23 /hpf (0-4); Urobilinogen,Urine <2.0 mg/dL (<2.0); WBC,Urine 12 /hpf (0-5)
[2021-06-06 07:03] LABS: HGB 9.7 gm/dL (11.4-16.0)
--- NOTE | 2021-06-06 08:34 | P.PN ---
Progress Note - Text Progress Note Date: 06/06/21 Orthopedic Spine History of present illness: Patient is a pleasant 76-year-old female who is seen and examined at the bedside following posterior lateral decompression and fusion performed Wednesday. Patient states they are doing okay post operatively feels her pain is worse this morning. She states her leg pain is well-controlled. Her legs do feel heavy. She has pain across her lumbar spine. She has been working with physical therapy increase her mobility and ambulation. She's been able to transfer to a bedside commode and ambulate to a doorway. She is using a walker. She states she is unable to roll over in bed due to her pain. Currently does not complain of nausea, vomiting, fever, or chills. Patient states pain has been adequately controlled continues to require IV and oral pain medications. Patient is eating and voiding freely without difficulty. He denies any abdominal pain. Patient is being seen exam by medicine for other medical diagnoses including heart disease with history of cardiac stent placement, hypertension, and hype rlipidemia. Physical Exam Lumbar Fusion: Status post surgical day number 2 Patient is awake, alert, and oriented 3 Vital signs stable Good chest excursion with deep inspiration and expiration Abdomen soft nontender Dorsiflexion, plantarflexion, and extensor hallucis longus positive sustained bilaterally No signs or symptoms of DVT; no calf pain; pneumatic cuffs intact bilateral lower extremities Optifoam dressings main intact Neurovascularly intact bilaterally lower extremities Assessment: Status post L3-4, L4-5, and L5-S1 minimally invasive posterior lateral decompression and fusion with transforaminal lumbar interbody fusion Low back pain L3-4 spondylolisthesis Severe lumbar degenerative disc disease Lower extremity radiculopathy Lumbar disc herniation L3-4 and L5-S1 Lumbar foraminal stenosis L3-4, L4-5, and L5-S1 Heart disease with history of cardiac stent placement Hypertension Hyperlipidemia Obesity Plan: 1. Ambulate as tolerated; work with Physical Therapy to increase mobilization; prescription is written, signed, and provided to case management to obtain a rolling walker to aid in ambulation at time of discharge 2. Continue pain control with IV and oral medications; will plan to begin weaning the patient off of IV narcotic medication in anticipation for discharge home in the next 1-2 days; we'll plan to increase her oral [place] to 7.5 mg/325 mg 1 tab every 4 hours as needed for pain and will discontinue [place] 5 mg/325 mg during admission. We will plan for oral [place] 5 mg/325 mg 1 tab every 4 hours as needed for pain at discharge. MAPS has been previously reviewed. An "Opiod Start Talking" Form has been signed and placed in the patient's chart. A prescription has been written for [place] 5 mg/325 mg 1 tab every 4 hours as needed for pain, dispense #42. This medication was sent to [facility] pharmacy located within [facility] per the patient's request. 3. Dressings to remain intact with Optifoam; patient may shower with dressings intact 4. Medical management can continue to manage patient for patient's other medical diagnoses 5. We will continue to follow the patient closely; depending on the patient's progress, we may plan for discharge home as early as tomorrow, 06/06/2021 6. Patient can follow-up with Bill Vega PA-C or Dr. Cricket Curiel at [facility] in 2-3 weeks following discharge
[2021-06-06] MEDS: carvediloL 12.5 MG TAB PO SCH ×2 (08:59→17:26)
[2021-06-06] MEDS: CYCLOBENZAPRINE 10 MG TAB PO PRN (08:59)
[2021-06-06] MEDS: ASPIRIN 81 MG PO SCH (08:59)
[2021-06-06] MEDS: PANTOPRAZOLE 40 MG/10 ML VIAL IVP SCH (08:59)
[2021-06-06] MEDS: ATORVASTATIN 40 MG TAB PO SCH (08:59)
[2021-06-06] MEDS: SENNOSIDES-DOCUSATE SODIUM 1 EACH TAB PO SCH (08:59)
[2021-06-06] MEDS: ISOSORBIDE MONONITRATE ER 60 MG TAB.ER.24H PO SCH (08:59)
[2021-06-06 09:58] LABS: African American GFR (CKD) 56.5 (60.0-200.0); Anion Gap 9.1 mmol/L (10.00-18.00); BUN/Creat Ratio 18.55 Ratio (12.00-20.00); Blood Urea Nitrogen 20.4 mg/dL (9.0-27.0); Calcium 8.5 mg/dL (8.7-10.3); Carbon Dioxide 23.9 mmol/L (20.0-27.5); Non-African American GFR(CKD) 48.7 (60.0-200.0); Potassium 5.2 mmol/L (3.5-5.5)
[2021-06-06] MEDS: HYDROcodone/APAP 7.5-325MG 1 EACH TAB PO PRN ×2 (13:17→17:26)
--- NOTE | 2021-06-06 15:11 | P.PN ---
Subjective Progress Note Date: 06/06/21 This is a 76-year-old female , CAD with history of cardiac stents, cataracts and multiple other medical issues presented to the hospital for elective surgery regarding disc herniation with stenosis and lower extremity radiculopathy, status post minimally invasive decompression fusion L 3 4 L4 space 5 5-S1. Tolerated procedure well. Has been out of bed yet. Afebrile, WBC 17.4. Hemoglobin 11.6, platelets 164, renal function stable. [place] virus not detected. Passing flatus. Reports pain better controlled. Denies nausea vomiting. Denies chest pain, palpitations or shortness of breath. 06/06/2021 currently complains of pain. Currently receiving IV pain medication for relief. Ambulating with walker with in room, tolerating exertion well. Is lightheadedness dizziness or focal deficits. Denies chest pain, palpitations or shortness of breath. Maintaining O2 sats in the high 90s on room air. Afebrile, WBC trending down to 14.6, UA to 12 WBCs, small leukocytes negative nitrates. Urine culture pending. Denies Urinary symptoms. Denies nausea vomiting or diarrhea. Passing flatus. Objective - Vital Signs Vital signs: Vital Signs Temp 98.6 F 06/06/21 04:27 Pulse 80 06/06/21 09:02 Resp 16 06/06/21 04:27 BP 149/54 06/06/21 09:02 Pulse Ox 95 06/06/21 07:48 Intake & Output 06/05/21 06/06/21 06/06/21 18:59 06:59 18:59 Intake Total 950 2030 Balance 950 2030 Intake: Intake, IV Titration 950 900 Amount Sodium Chloride 0.9% 1, 900 900 000 ml @ 75 mls/hr IV . [id number] MATT Rx#:[id number] ceFAZolin 2 gm In Sodium 50 Chloride 0.9% 50 ml @ 100 mls/hr IVPB Q8HR MATT Rx# :[id number] Oral 1130 Other: Voiding Method Indwelling Catheter Bedpan # Voids 1 - Exam PHYSICAL EXAM: VITAL SIGNS: [As above] GENERAL: Alert and oriented 3, Sitting up in bed, no acute distress. HEENT: Conjunctivae normal. eyes normal. Oral mucosa moist. NECK: No JVD. No LNs. CARDIOVASCULAR: S1, S2 regular. No murmur. RESPIRATION: Breath sounds diminished in the bases. No rhonchi or crackles. ABDOMEN: Soft, nontender . No guarding. no masses palpable. Bowel sounds heard. LEGS: No edema. no swelling, no clubbing, no cyanosis, no calf pain. NERVOUS SYSTEM: Cranial N 2-12 grossly normal. No focal deficits. Strength and sensation grossly intact. Skin: Warm and dry, no rash - Labs CBC & Chem 7: 06/06/21 05:49 06/06/21 05:49 Labs: Abnormal Lab Results - Last 24 Hours (Table) 06/06/21 06/06/21 06/06/21 Range/Units 05:00 05:49 05:49 WBC 14.6 H (3.8-10.6) k/uL RBC 3.29 L (3.80-5.40) m/uL Hgb 9.7 L D (11.4-16.0) gm/dL Hct 29.4 L (34.0-46.0) % Plt Count 148 L (150-450) k/uL Neutrophils # 12.7 H (1.3-7.7) k/uL Lymphocytes # 0.7 L (1.0-4.8) k/uL Anion Gap 9.10 L (10.00-18.00) mmol/L Est GFR (CKD-EPI)AfAm 56.5 L (60.0-200.0) Est GFR (CKD-EPI)NonAf 48.7 L (60.0-200.0) Glucose 177 H (70-110) mg/dL Calcium 8.5 L (8.7-10.3) mg/dL Urine Appearance Cloudy H (Clear) Urine Protein Trace H (Negative) Urine Blood Trace H (Negative) Ur Leukocyte Esterase Small H (Negative) Urine RBC 9 H (0-5) /hpf Urine WBC 12 H (0-5) /hpf Ur Squamous Epith Cells 23 H (0-4) /hpf Urine Mucus Few H (None) /hpf Microbiology - Last 24 Hours (Table) 06/06/21 05:00 Urine Culture - Preliminary Urine,Clean Catch Assessment and Plan Assessment: Postoperative day #1 status post minimally invasive decompression fusion L3 4 L4 5 L5-S1 for her disc herniation with stenosis and listhesis with lower extremity radicular pain weakness Leukocytosis, suspect reactive, improving Hypertension Hyperlipidemia Osteoarthritis Plan: Continue on current medication regime ,monitoring and symptomatic tr eatment. PT . Pain management as per orthopedic surgery.urine culture pending.Aggressive pulmonary toileting with incentive spirometer reinforced. Discharge planning in progress as per primary/orthopedic surgery possibly soon as tomorrow. The impression and plan of care has been dictated as directed. : I performed a history and examination of this patient, discussed the same with the dictator. I agree with the dictator's note ,documented as a scribe. Any additional findings or plans will be noted.
[2021-06-06 20:08] VITALS: PULSE 82
[2021-06-07 04:39] VITALS: BP 144/75; TEMP 99.1
[2021-06-07 05:04] VITALS: RESP 16
[2021-06-07] MEDS: HYDROcodone/APAP 7.5-325MG 1 EACH TAB PO PRN ×2 (06:20→11:32)
[2021-06-07 08:20] LABS: Basophils % (A) 0 %; Eosinophils # (A) 0.2 k/uL (0-0.7); Eosinophils % (A) 2 %; HCT 25.4 % (34.0-46.0); HGB 8.4 gm/dL (11.4-16.0); Lymphocytes # (A) 0.7 k/uL (1.0-4.8); Lymphocytes % (A) 7 %; MCH 29.3 pg (25.0-35.0); MCHC 33.2 g/dL (31.0-37.0); MCV 88.3 fL (80.0-100.0); Mean Platelet Volume 8.7; Monocytes # (A) 0.8 k/uL (0-1.0); Monocytes % (A) 7 %; Neutrophils # (A) 9.4 k/uL (1.3-7.7); Neutrophils % (A) 83 %; Platelet Count 118 k/uL (150-450); RBC 2.87 m/uL (3.80-5.40); WBC 11.3 k/uL (3.8-10.6)
--- NOTE | 2021-06-07 08:55 | P.DS ---
Providers Date of admission: 06/06/21 16:15 Expected date of discharge: 06/07/21 Attending physician: Seth Curiel Consults: 06/04/21 13:20 Consult Physician Routine Consulting Provider: Kishore Carr Consult Reason/Comments: Medical management Do you want consulting provider notified?: Yes Primary care physician: Kishore Carr - Discharge Diagnosis(es) (1) Status post lumbar spinal fusion Current Visit: Yes Status: Acute (2) Lumbar stenosis Current Visit: Yes Status: Acute Hospital Course: Patient is a pleasant 76-year-old female who is status post posterior lateral decompression and fusion performed 06/04/2021. Patient states that she is doing okay post operatively, feels her pain is improving. She states her leg pain is well-controlled. Her legs do feel heavy. She has pain across her lumbar spine. She has been working with physical therapy increase her mobility and ambulation. She's been able to transfer to a bedside commode and ambulate to a doorway. She is using a walker. Currently does not complain of nausea, vomiting, fever, or chills. Patient is eating and voiding freely without difficulty. She denies any abdominal pain. Patient is being seen exam by medicine for other medical diagnoses including heart disease with history of cardiac stent placement, hypertension, and hyperlipidemia. Patient is discharged to home today if cleared medically and considered safe by physical therapy. Please see med rec for accurate list of home medications. Plan - Discharge Summary Discharge Rx Participant: Yes New Discharge Prescriptions: New HYDROcodone/APAP 5-325MG [[place] 5-325] 1 tab PO Q4HR PRN 3 Days #42 tab PRN Reason: Pain No Action Isosorbide Mononitrate ER [Imdur] 60 mg PO DAILY Cephalexin [Keflex] 250 mg PO Q12HR HYDROcodone/APAP 5-325MG [[place] 5-325] 1 tab PO Q6HR PRN PRN Reason: Pain traMADol HCl [Ultram] 50 mg PO Q12H PRN PRN Reason: Pain Atorvastatin [Lipitor] 40 mg PO DAILY Aspirin 81 mg PO DAILY Carvedilol [Coreg] 25 mg PO BID Discharge Medication List Aspirin 81 mg PO DAILY 05/28/21 [History] Atorvastatin [Lipitor] 40 mg PO DAILY 05/28/21 [History] Carvedilol [Coreg] 25 mg PO BID 05/28/21 [History] HYDROcodone/APAP 5-325MG [[place] 5-325] 1 tab PO Q6HR PRN 05/28/21 [History] Isosorbide Mononitrate ER [Imdur] 60 mg PO DAILY 05/28/21 [History] traMADol HCl [Ultram] 50 mg PO Q12H PRN 05/28/21 [History] Cephalexin [Keflex] 250 mg PO Q12HR 06/04/21 [History] HYDROcodone/APAP 5-325MG [[place] 5-325] 1 tab PO Q4HR PRN 3 Days #42 tab 06/05/21 [Rx] Follow up Appointment(s)/Referral(s): Seth Curiel DO [Doctor of Osteopathic Medicine] - 2 Weeks Activity/Diet/Wound Care/Special Instructions: Keep site clean. May shower with waterproof Optiofoam intact. Do not soak in a tub. After 72 hours postoperatively, patient May remove dressing and then may shower with area uncovered. Leave glue intact and allow it to fray off on its own. May ambulate as tolerated. Avoid heavy or rigorous activity. No repetitive bending twisting or lifting. No overhead work.
[2021-06-07] MEDS: LACTATED RINGERS 1,000 ML IV SCH (08:59)
[2021-06-07] MEDS: ATORVASTATIN 40 MG TAB PO SCH (09:00)
[2021-06-07] MEDS: PANTOPRAZOLE 40 MG/10 ML VIAL IVP SCH (09:00)
[2021-06-07] MEDS: carvediloL 12.5 MG TAB PO SCH (09:00)
[2021-06-07] MEDS: ISOSORBIDE MONONITRATE ER 60 MG TAB.ER.24H PO SCH (09:00)
[2021-06-07] MEDS: ASPIRIN 81 MG PO SCH (09:00)
[2021-06-07] MEDS: SENNOSIDES-DOCUSATE SODIUM 1 EACH TAB PO SCH (09:00)
[2021-06-07] MEDS: SODIUM CHLORIDE 0.9% 1,000 ML IV SCH (10:48)
[2021-06-07 11:59] LABS: African American GFR (CKD) 67.2 (60.0-200.0); Anion Gap 9.9 mmol/L (10.00-18.00); BUN/Creat Ratio 20.36 Ratio (12.00-20.00); Blood Urea Nitrogen 19.4 mg/dL (9.0-27.0); Carbon Dioxide 22.5 mmol/L (20.0-27.5); Potassium 4.6 mmol/L (3.5-5.5)
== END 2021-06-07 12:20 | disposition home or self-care (01) | DRG 460 ==
LOC: OR 06:42 → EDSTATUS 08:00 → 5NMEDONC 13:11 → OR 06-05 12:09 → 5NMEDONC 06-05 12:09 → OBSVTOIN 06-06 16:15
PROVIDERS: ADMIT Orthopaedic Surgery Orthopaedic Surgery of the Spine; ATTEND Orthopaedic Surgery Orthopaedic Surgery of the Spine
PROC: 0SG00AJ Fusion of Lumbar Vertebral Joint with Interbody Fusion Device, Posterior Approach, Anterior Column, Open Approach (ICD-10-PCS; 2021-06-04)
PROC: 00NY0ZZ Release Lumbar Spinal Cord, Open Approach (ICD-10-PCS; 2021-06-04)
PROC: 0ST20ZZ Resection of Lumbar Vertebral Disc, Open Approach (ICD-10-PCS; 2021-06-04)
PROC: 0ST40ZZ Resection of Lumbosacral Disc, Open Approach (ICD-10-PCS; 2021-06-04)
PROC: 0SG30AJ Fusion of Lumbosacral Joint with Interbody Fusion Device, Posterior Approach, Anterior Column, Open Approach (ICD-10-PCS; principal; 2021-06-04 08:00)
DX: M48.061 Spinal stenosis, lumbar region without neurogenic claudication (principal); M43.16 Spondylolisthesis, lumbar region; M51.16 Intervertebral disc disorders with radiculopathy, lumbar region; D72.829 Elevated white blood cell count, unspecified; E66.9 Obesity, unspecified; Z68.32 Body mass index [BMI] 32.0-32.9, adult; Z20.822 Contact with and (suspected) exposure to COVID-19; E78.5 Hyperlipidemia, unspecified; I10 Essential (primary) hypertension; I25.10 Atherosclerotic heart disease of native coronary artery without angina pectoris; M19.90 Unspecified osteoarthritis, unspecified site; Z79.82 Long term (current) use of aspirin; Z79.899 Other long term (current) drug therapy; Z95.5 Presence of coronary angioplasty implant and graft
CPT/HCPCS: 72100; 80048; 81001; 85025; 86850; 86900; 86901; 87086; 87635; 94760

== ENCOUNTER → 2022-01-26 | Outpatient (CLI) | payer MEDICARE ==
--- NOTE | 2022-01-26 16:19 | FL ---
EXAMINATION TYPE: FL barium swallow DATE OF EXAM: 01/26/2022 COMPARISON: None HISTORY: Dysphagia TECHNIQUE: A double air contrast esophagram study is performed. FINDINGS: Fluoroscopy time: 32 seconds. Images: 197 . The conus has a normal contour to the gastroesophageal junction. Within the mid esophageal region t here is a persistent area of narrowing at the level of the aortic arch. No significant hesitancy of c ontrast passing through this region is evident however. Multiple tertiary contractions are evident th roughout the examination. Note is made of incomplete stripping of the esophageal bolus during the exa mination. No intraluminal abnormalities are identified. IMPRESSIONS: 1. Mild circumferential narrowing within the mid esophagus at approximately the level of the aortic a rch. No significant hesitancy passing through this region is observed. Consider direct visualization. 2. Presbyesophagus with incomplete stripping in the horizontal drinking position.
== END | disposition home or self-care (01) ==
LOC: RADUSWWP 09:46
PROVIDERS: ATTEND Otolaryngology
DX: I35.0 Nonrheumatic aortic (valve) stenosis (principal); K22.89 Other specified disease of esophagus
CPT/HCPCS: 74220

== ENCOUNTER → 2023-05-25 | Outpatient (CLI) | payer MEDICARE ==
[2023-05-25 20:22] LABS: Chol/HDL Ratio 3.51 Ratio; LDL Cholesterol,Calculated 95.9 mg/dL (0.0-131.0)
== END | disposition home or self-care (01) ==
LOC: LABWHC1 09:26
PROVIDERS: ATTEND Internal Medicine
DX: I25.10 Atherosclerotic heart disease of native coronary artery without angina pectoris (principal)
CPT/HCPCS: 36415; 80061

== ENCOUNTER → 2024-12-28 | Outpatient (CLI) | payer MEDICARE ==
--- NOTE | 2024-12-28 21:18 | XR ---
EXAMINATION TYPE: XR KUB DATE OF EXAM: 12/28/2024 4:27 PM COMPARISON: None. CLINICAL INDICATION: Female, 79 years old with history of R10.31 RIGHT LOWER QUADRANT PAIN, TECHNIQUE: XR KUB view(s) obtained. FINDINGS: There is a normal colonic bowel gas pattern. Psoas margins are normal. Cholecystectomy evident No organomegaly is present. Prior lumbar fixation surgery is present L3 through S1 IMPRESSION: 1. Unremarkable [facility], , 12/28/2024 9:15 PM
== END | disposition home or self-care (01) ==
LOC: RADXRMAIN 15:57
PROVIDERS: ATTEND Nurse Practitioner Family
DX: R10.31 Right lower quadrant pain (principal)
CPT/HCPCS: 74018